=== PATIENT | female | born 2000 | race African-American/Black ===

== ENCOUNTER 2023-08-24 16:48 | Emergency (ER) | payer MEDICAID, OTHER ==
[~2023-08-24] VITALS: Ht 177.8 cm; Wt 71.0 kg
[2023-08-24 17:19] VITALS: BP 136/84; PULSE 87; RESP 14; TEMP 98.4; O2SAT 100
[2023-08-24 18:23] LABS: BASOPHILS % 0.4 % (0.0-2.0); EOSINOPHILS % 0.6 % (0.0-5.0); HEMATOCRIT. 37.2 % (36.0-48.0); HEMOGLOBIN. 12.6 g/dL (12.0-16.0); LYMPHOCYTES % 24.3 % (20.0-50.0); MEAN CORPUSCULAR HEMOGLOBIN 30.5 pg (28.0-32.0); MEAN CORPUSCULAR HGB CONC 33.9 g/dL (31.0-37.0); MEAN CORPUSCULAR VOLUME 90.1 fL (81.0-99.0); MEAN PLATELET VOLUME 8.7 fl (7.4-10.4); MONOCYTES % 5.8 % (2.0-8.0); NEUTROPHILS % 68.9 % (40.0-76.0); PLATELET 236 x1000/uL (130-400); RED BLOOD CELL COUNT 4.13 mill/uL (4.2-5.4); RED CELL DISTRIBUTION WIDTH 12.7 % (11.6-14.6); WHITE BLOOD COUNT 9.3 x1000/uL (4.5-11.0)
[2023-08-24 18:34] LABS: PROTHROMBIN TIME 11.6 sec (9.6-11.0)
[2023-08-24 18:41] LABS: HCG SCREEN POSITIVE
[2023-08-24 18:54] LABS: ALANINE AMINOTRANSFERASE 9 IU/L (10-49); ALBUMIN 4.9 g/dL (3.2-4.8); ASPARTATE AMINOTRANSFERASE 16 IU/L (<34); B-HCG QUANTITATIVE 9585 mIU/mL (<3); BILIRUBIN TOTAL 0.5 mg/dL (0.1-1.0); CALCIUM 9.8 mg/dL (8.7-10.4); CARBON DIOXIDE 25 mEq/L (21-32); CHLORIDE 105 mEq/L (98-107); CREATININE 0.7 mg/dL (0.6-1.0); GLUCOSE 92 mg/dL (70-105); POTASSIUM 4.2 mEq/L (3.5-5.1); PROTEIN TOTAL 8.4 g/dL (6.0-8.3); SODIUM 136 mEq/L (136-145); UREA NITROGEN BLOOD 13 mg/dL (9-23)
== END 2023-08-24 21:12 | disposition home or self-care (01) ==
LOC: ER 16:48
DX: O03.4 Incomplete spontaneous abortion without complication (principal); O46.91 Antepartum hemorrhage, unspecified, first trimester; Z3A.08 8 weeks gestation of pregnancy
CPT/HCPCS: 36415; 76830; 76856; 80053; 84702; 84703; 85025; 86850; 86900; 99291

== ENCOUNTER 2024-01-03 10:12 | Emergency (ER) | payer MEDICAID ==
[~2024-01-03] VITALS: Ht 177.8 cm; Wt 75.0 kg
[2024-01-03 10:30] VITALS: BP 119/79; PULSE 79; RESP 20; TEMP 98.2; O2SAT 100
[2024-01-03 11:19] LABS: CLARITY URINE CLEAR (CLEAR); COLOR URINE YELLOW (YELLOW); GLUCOSE URINE NEGATIVE (NEGATIVE); KETONES URINE NEGATIVE (NEGATIVE); LEUKOCYTE ESTERASE URINE NEGATIVE (NEGATIVE); NITRITE URINE NEGATIVE (NEGATIVE); OCCULT BLOOD URINE NEGATIVE (NEGATIVE); PH URINE 5.5 (4.5-8.0); PROTEIN URINE NEGATIVE (NEGATIVE); SPECIFIC GRAVITY URINE 1.028 (1.005-1.030); UROBILINOGEN URINE 0.2 E.U./dL (0.2-1.0)
[2024-01-03 12:13] LABS: BASOPHILS % 0.6 % (0.0-2.0); EOSINOPHILS % 0.3 % (0.0-5.0); HEMOGLOBIN. 13.1 g/dL (12.0-16.0); LYMPHOCYTES % 27.2 % (20.0-50.0); MEAN CORPUSCULAR HEMOGLOBIN 29.9 pg (28.0-32.0); MEAN CORPUSCULAR HGB CONC 32.8 g/dL (31.0-37.0); MEAN PLATELET VOLUME 8.7 fl (7.4-10.4); MONOCYTES % 4.6 % (2.0-8.0); NEUTROPHILS % 67.3 % (40.0-76.0); PLATELET 240 x1000/uL (130-400); RED BLOOD CELL COUNT 4.39 mill/uL (4.2-5.4); WHITE BLOOD COUNT 6.6 x1000/uL (4.5-11.0)
[2024-01-03 12:17] LABS: CHLORIDE 106 mEq/L (98-107); POTASSIUM 4.5 mEq/L (3.5-5.1); SODIUM 137 mEq/L (136-145)
[2024-01-03 12:18] LABS: CALCIUM 9.5 mg/dL (8.7-10.4); CARBON DIOXIDE 26 mEq/L (21-32)
[2024-01-03 12:23] LABS: CREATININE 0.7 mg/dL (0.6-1.0); GLUCOSE 94 mg/dL (70-105); UREA NITROGEN BLOOD 12 mg/dL (9-23)
[2024-01-03 12:25] LABS: ALANINE AMINOTRANSFERASE 11 IU/L (10-49); ALBUMIN 4.7 g/dL (3.2-4.8); ASPARTATE AMINOTRANSFERASE 17 IU/L (<34); HCG SCREEN POSITIVE
[2024-01-03 12:26] LABS: BILIRUBIN DIRECT 0.3 mg/dL (<=3.0); BILIRUBIN TOTAL 0.6 mg/dL (0.1-1.0)
== END 2024-01-03 16:01 | disposition home or self-care (01) ==
LOC: ER 10:51
DX: O26.891 Other specified pregnancy related conditions, first trimester (principal); Z3A.01 Less than 8 weeks gestation of pregnancy; Z98.890 Other specified postprocedural states
CPT/HCPCS: 36415; 76801; 80048; 80076; 81003; 81025; 84702; 84703; 85025; 86850; 86900; 99284